=== PATIENT | female | born 1995 | race Caucasian/White ===

== ENCOUNTER 2020-02-15 02:02 | Emergency (ER) | payer MEDICAID, SELFPAY ==
[2020-02-15 02:06] VITALS: BP 116/77; PULSE 94; RESP 16; TEMP 36.8; O2SAT 98; BMI 38.0
--- NOTE | 2020-02-15 02:20 | ED_ITS ---
HPI - Dental/Oral General: Chief complaint: Dental/Oral Stated complaint: Tooth Pain Time Seen by Provider: 02/15/20 02:05 History of Present Illness: HPI Narrative: Patient is a 24-year-old female comes to the ED with dental pain. Symptoms started approximately 2 days ago. Dental pain with teeth numbers 31 and 30. She says today she woke up with some swelling on the right lower jaw. She is going to contact a dentist tomorrow morning to set up an appointment. Denies any fever, chills or any trouble breathing. Associated symptoms: Denies fever(s) or odynophagia Review of Systems Const: Denies: fever(s), chills or fatigue Eyes: Denies: change in vision or eye discomfort ENMT: Reports: dental pain; Denies: throat pain, odynophagia, nasal discharge or nasal congestion Card: Denies: chest pain, palpitations, edema, swelling of feet/ankles, dyspnea on exertion or orthopnea Resp: Denies: dyspnea, productive cough or non-productive cough GI: Denies: abdominal pain, nausea, vomiting, diarrhea, constipation or hematochezia : Denies: flank pain, dysuria or hematuria Musc: Denies: neck pain, back pain or extremity swelling Skin/Breast: Denies: rash or new lesions Neuro: Denies: headache(s), numbness in extremities or weakness in extremities [facility] ED Female Reproductive History: Date of last menstrual period: 02/01/20 Physical Exam Const: COMMON NORMALS: no acute distress, patient oriented x3 and alert GENERAL APPEARANCE: cooperative and comfortable HENMT: COMMON NORMALS: normocephalic HEAD & SCALP: normocephalic MOUTH: Normal oral and palatal mucosa present TEETH & GINGIVA: Yes caries (Extensive dental caries on teeth #31 and 30.) and Yes poor dentition (Patient has poor dentition throughout mouth.) THROAT: posterior oropharynx normal and uvula midline Neck/C-Spine: COMMON NORMALS: supple GENERAL: Yes normal visual inspection Resp: COMMON NORMALS: normal respiratory effort, No retractions, No use of accessory muscles and clear to auscultation bilaterally AUSCULTATION: clear to auscultation bilaterally Cardio: COMMON NORMALS: regular rate, regular rhythm, S1 normal heart sound present, S2 normal heart sound present, No gallops present (Cardio), No clicks present (Cardio), No murmurs present (Cardio) and Peripheral pulses 2+ throughout RATE: regular rate RHYTHM: regular rhythm HEART SOUNDS: S1 normal heart sound present and S2 normal heart sound present PERIPHERAL PULSES: Peripheral pulses 2+ throughout GI: COMMON NORMALS: Normal to inspection, nondistended, normoactive bowel sounds present, Soft to palpation, non-tender and no masses PALPATION: Yes Soft to palpation : COMMON NORMALS: Yes no CVA tenderness BLADDER/KIDNEY EXAM: Yes no CVA tenderness Back/Pelvis: COMMON NORMALS: no CVA tenderness Extremity: COMMON NORMALS: normal to inspection Neuro: COMMON NORMALS: patient oriented x3 and moves all extremities SENSORIUM/ORIENTATION: Yes alert Skin: GENERAL SKIN EXAM: dry skin Course Vital Signs: Vital signs: Vital Signs Temperature 98.2 F 02/15/20 02:06 Pulse Rate 86 02/15/20 02:22 Respiratory Rate 16 02/15/20 02:22 Blood Pressure 115/86 02/15/20 02:22 Pulse Oximetry 98 02/15/20 02:22 MDM - Dental/Oral MDM Narrative: Medical decision making narrative: Patient is a 24-year-old female comes ED with dental pain. She has some mild swelling on the right lower jaw and extensive dental caries on tooth #30 and 31. Denies any fever, chills or any trouble breathing. Patient discharged with a prescription for clindamycin. She says she has a dentist that she is going to call tomorrow morning and set up an appointment. Return to ED precautions given. Patient understood agree with plan. Discharge Plan Discharge Patient Disposition: Home Clinical Impression: Pain due to dental caries Condition: Stable Prescriptions: New clindamycin HCl 150 mg capsule 300 mg PO QID 7 Days Qty: 56 RF: 0 Discharge Orders: Discharge Order (Routine); Ordered 02/15/20 Ordered By: Etienne Rose Referrals: Gerard Arellano MD [Primary Care Provider] - Discharge Diet: Regular Discharge Activity: Resume usual activity Patient Instructions: Dental Caries (ED) Activity Restrictions/Additional Instructions: Contact dentist and set up an appointment to address dental pain. Take medications as prescribed. Take [id number] Tylenol or ibuprofen for pain. Return to the ER or your medical provider if condition worsens. Please read and understand discharge instructions. If any questions, please ask. Coding Level of Care Code ED Coiler Operator for Chg Fwd Exam Comprehensive
[2020-02-15 02:22] VITALS: BP 115/86; PULSE 86; RESP 16; O2SAT 98
[2020-02-15] MEDS: clindamycin 150 mg Capsule 300 MG PO (02:38)
[2020-02-15] MEDS: HYDROcodone-acetaminophen 7.5-325 mg Tablet 1 TAB PO (02:39)
--- NOTE | 2020-02-15 02:41 | PC.NURSE ---
Patient sent home with a hydrocodone-APAP 7.5-325 mg.
[2020-02-15 02:43] VITALS: BP 102/67; PULSE 91; RESP 17; TEMP 36.8; O2SAT 98
== END 2020-02-15 02:43 | disposition home or self-care (01) ==
PROVIDERS: Emergency Provider Physician Assistant; PCP Family Medicine
DX: K02.9 Dental caries, unspecified (principal)
CPT/HCPCS: 12345; 99283

== ENCOUNTER 2020-04-23 20:27 | Emergency (ER) | payer MEDICAID, SELFPAY ==
[2020-04-23 20:36] VITALS: BP 135/84; PULSE 92; RESP 18; TEMP 37.1; O2SAT 97; BMI 40.7
--- NOTE | 2020-04-23 20:46 | W.ED.DENTAL ---
HPI - Dental/Oral General: Chief complaint: Dental/Oral Stated complaint: TOOTH INFECTION Time Seen by Provider: 04/23/20 20:30 Source: patient Mode of arrival: ambulatory Limitations: no limitations History of Present Illness: HPI Narrative: Patient comes in with right lower jaw pain. Patient also reports some swelling and tenderness to the right mandibular area. She also notes a swelling to the area. Patient handle secretions well. Patient speaks clearly. Patient denies any allergies to medications. Patient denies any chronic medical problems. Review of Systems General: Reports: 10 or more systems reviewed and unremarkable except in HPI and below ENMT: Reports: dental pain [facility] ED Female Reproductive History: Date of last menstrual period: 04/16/20 Physical Exam Const: COMMON NORMALS: no acute distress and patient oriented x3 GENERAL APPEARANCE: cooperative HENMT: COMMON NORMALS: normocephalic, TM's normal bilaterally and Normal external nose present HEAD & SCALP: normal to inspection and normocephalic NOSE: Normal external nose present TYMPANIC MEMBRANE: TM's normal bilaterally MOUTH: Normal oral and palatal mucosa present and other (Redness to the gingival area of the second premolar and first molar of the ) THROAT: posterior oropharynx normal Eye: GENERAL EYE: appearance normal, both eyes and all related structures Neck/C-Spine: COMMON NORMALS: full ROM Lymph: LYMPHATIC: no lymphadenopathy noted Chest: COMMONS NORMALS: normal inspection of the chest Resp: COMMON NORMALS: normal respiratory effort EFFORT & INSPECTION: Yes able to speak in complete sentences Cardio: COMMON NORMALS: regular rate and regular rhythm RATE: regular rate RHYTHM: regular rhythm GI: COMMON NORMALS: non-tender Extremity: COMMON NORMALS: normal to inspection Neuro: COMMON NORMALS: patient oriented x3 and moves all extremities Psych: COMMON NORMALS: mental status grossly normal and cooperative Skin: COMMON NORMALS: no rashes or lesions noted GENERAL SKIN EXAM: no rashes or lesions noted Course Vital Signs: Vital signs: Vital Signs Temperature 98.8 F 04/23/20 20:36 Pulse Rate 92 04/23/20 20:36 Respiratory Rate 18 04/23/20 20:36 Blood Pressure 135/84 04/23/20 20:36 Pulse Oximetry 97 04/23/20 20:36 MDM - Dental/Oral MDM Narrative: Medical decision making narrative: Patient presents with swelling and tenderness to the right lower jaw in the area of the first molar and second premolar. Patient has multiple fillings in those teeth. Posterior pharynx is clear without any signs of significant swelling or asymmetry. Differential diagnosis includes but not limited to gingivitis, dental pain, periapical abscess. Reviewed exam with patient with recommendations for treatment of periapical abscess. Patient was noted to follow-up with dentist for definitive care. Patient reported understanding. Discharge Plan Discharge Patient Disposition: Home Clinical Impression: Dental abscess Condition: Stable Prescriptions: New Augmentin 875-125 mg tablet 1 tab PO BID Qty: 14 RF: 0 ibuprofen 600 mg tablet 600 mg PO Q6H PRN (Reason: pain) Qty: 20 RF: 0 Lidocaine Viscous 2 % solution 10 ml mucous membrane Q3H PRN (Reason: pain) Qty: 100 RF: 0 Discharge Orders: Discharge ED (Routine); Ordered 04/23/20 Ordered By: Julian Scott Referrals: Gerard Arellano MD [Primary Care Provider] - Discharge Diet: Usual diet Discharge Activity: Increase activity as tolerated Patient Instructions: Dental Abscess (ED) Activity Restrictions/Additional Instructions: Take antibiotics as directed. Drink plenty of water with antibiotic and medication for pain. Activity as tolerated. Follow-up with primary care for further treatment. Follow-up with dentist for definitive care. Coding Level of Care Code ED Mail Service Coordinator for Holly Fwd Exam Comprehensive
== END 2020-04-23 21:00 | disposition home or self-care (01) ==
PROVIDERS: Emergency Provider Nurse Practitioner Family; PCP Family Medicine
DX: K04.7 Periapical abscess without sinus (principal)
CPT/HCPCS: 12345; 99281